=== PATIENT | male | born 1985 | race Caucasian/White ===

== ENCOUNTER 2017-02-28 01:19 | Emergency (ER) | payer MEDICAID ==
[~2017-02-28] VITALS: Ht 185.4 cm; Wt 81.6 kg
[2017-02-28 04:37] VITALS: BP 125/79
== END 2017-02-28 05:30 | disposition home or self-care (01) ==
LOC: ER 01:28
DX: T58.91XA Toxic effect of carbon monoxide from unspecified source, accidental (unintentional), initial encounter (principal); Y92.89 Other specified places as the place of occurrence of the external cause
CPT/HCPCS: 36600; 82805

== ENCOUNTER 2018-06-06 16:12 | Emergency (ER) | payer MEDICAID ==
[~2018-06-06] VITALS: Ht 188 cm; Wt 90.7 kg
[2018-06-06 18:42] VITALS: BP 123/82
== END 2018-06-06 20:35 | disposition home or self-care (01) ==
LOC: ER 16:12
DX: S62.336A Displaced fracture of neck of fifth metacarpal bone, right hand, initial encounter for closed fracture (principal); W18.39XA Other fall on same level, initial encounter; Y93.89 Activity, other specified; Y99.8 Other external cause status; Y92.096 Garden or yard of other non-institutional residence as the place of occurrence of the external cause
CPT/HCPCS: 29125; 73110; 73130

== ENCOUNTER 2022-01-14 12:04 | Emergency (ER) | payer MEDICAID ==
[~2022-01-14] VITALS: Ht 188 cm; Wt 90.9 kg
[2022-01-14 12:28] LABS: Basophils # (auto) 0.1 10 ^3/uL (0-0.2); Basophils % (auto) 0.8 % (0.0-2.0); Eosinophils # (auto) 1.1 10 ^3/uL (0-0.8); Eosinophils % (auto) 9.1 % (0.0-7.0); Hematocrit 48.2 % (41.0-53.0); Hemoglobin 16.2 g/dL (13.5-17.5); Lymphocytes # (auto) 2.3 10 ^3/uL (0.4-5.4); Lymphocytes % (auto) 18.8 % (10.0-50.0); Mean Corpuscular Hemoglobin 30.3 pg (28.0-32.0); Mean Corpuscular Hgb Conc. 33.6 g/dL (32.0-36.0); Neutrophils # (auto) 7.7 10 ^3/uL (1.6-8.6); Neutrophils % (auto) 63.3 % (37.0-80.0); Red Blood Cells 5.35 10^6/uL (4.5-5.90); White Blood Cell 12.1 10^3/uL (4.4-10.8)
[2022-01-14] MEDS ORDERED: IOHEXOL 350 MG/ML 100ML IJ ONE (12:46)
[2022-01-14 12:47] LABS: Albumin 4.3 g/dL (3.4-5.0); Calcium 9.2 mg/dL (8.5-10.1); Potassium 3.8 mmol/L (3.5-5.1)
[2022-01-14 12:52] LABS: Bilirubin, Total 0.6 mg/dL (0.2-1.0); Total Protein 7.5 g/dL (6.4-8.2)
[2022-01-14 15:00] LABS: Urine Bacteria NONE SEEN /hpf (None Seen); Urine Blood Negative /uL (Negative); Urine WBC <1 /hpf (0 - 3)
[2022-01-14] MEDS ORDERED: PANT40TA2 PO (16:05)
[2022-01-14] MEDS ORDERED: ONDA-144 PO (16:05)
[2022-01-14] MEDS ORDERED: HYDR-4902 PO (16:05)
[2022-01-14] MEDS ORDERED: AZIT1POW PO (16:09)
[2022-01-14 16:23] VITALS: BP 143/99
== END 2022-01-14 16:24 | disposition home or self-care (01) ==
LOC: ER 12:04
DX: J20.9 Acute bronchitis, unspecified (principal); D72.829 Elevated white blood cell count, unspecified; Z20.822 Contact with and (suspected) exposure to COVID-19
CPT/HCPCS: 36415; 71046; 71275; 80053; 81001; 84484; 85025; 87426; 93005; 99285; Q9967

== ENCOUNTER 2022-01-18 14:39 | Emergency (ER) | payer MEDICAID ==
[~2022-01-18] VITALS: Ht 188 cm; Wt 90.9 kg
[~2022-01-18 14:39] MED LIST: AZIT1POW PO; ONDA-144 PO; PANT40TA2 PO
[2022-01-18] MEDS ORDERED: ALBUTEROL MEDNEB 2.5 mg/3ml NEB ONE (14:53)
[2022-01-18] MEDS ORDERED: ALBUTEROL SULF 2.5 MG/0.5ML(0.5%) NEB SOLN NEB ONE (15:00)
[2022-01-18] MEDS ORDERED: IPRATROPIUM BROM 0.5 MG/2.5ML INH SOL NEB ONE (15:00)
[2022-01-18] MEDS ORDERED: PRED20TA2 PO (19:55)
[2022-01-18 20:17] VITALS: BP 138/89
== END 2022-01-18 20:18 | disposition home or self-care (01) ==
LOC: ER 14:39
DX: J45.901 Unspecified asthma with (acute) exacerbation (principal)
CPT/HCPCS: 94640; 99283; J7644

== ENCOUNTER 2022-03-23 09:07 | Emergency (ER) | payer MEDICAID ==
[~2022-03-23] VITALS: Ht 188 cm; Wt 90.0 kg
[~2022-03-23 09:07] MED LIST changes: +PRED20TA2 PO
[2022-03-23 10:58] VITALS: BP 117/88
[2022-03-23] MEDS ORDERED: MORPHINE SULFATE 4 MG/ML SYR/VIAL IM ONE (11:00)
[2022-03-23] MEDS ORDERED: ONDANSETRON ODT 4 MG TAB PO ONE (11:00)
[2022-03-23] MEDS ORDERED: LIDO5DIS21 TOP (12:08)
[2022-03-23] MEDS ORDERED: CYCL-839 PO (12:08)
[2022-03-23] MEDS ORDERED: IBUP600T28 PO (12:08)
== END 2022-03-23 12:20 | disposition home or self-care (01) ==
LOC: ER 09:07
DX: M54.12 Radiculopathy, cervical region (principal); J45.909 Unspecified asthma, uncomplicated; Z79.899 Other long term (current) drug therapy
CPT/HCPCS: 72040; 72125; 73030; 96372; 99285; J2270; Q0162

== ENCOUNTER 2022-04-06 07:19 | Inpatient (IN) | payer MEDICAID ==
[~2022-04-06] VITALS: Ht 188 cm; Wt 88.6 kg
[~2022-04-06 07:19] MED LIST changes: +CYCL-839 PO; +IBUP600T28 PO; +LIDO5DIS21 TOP
[2022-04-06] MEDS ORDERED: PANTOPRAZOLE 40 MG TAB PO ONE (07:45)
[2022-04-06] MEDS ORDERED: HYDR2.5C39 TOP (07:57)
[2022-04-06 08:47] LABS: Basophils # (auto) 0.1 10 ^3/uL (0-0.2); Basophils % (auto) 0.4 % (0.0-2.0); Eosinophils # (auto) 0.2 10 ^3/uL (0-0.8); Eosinophils % (auto) 1.4 % (0.0-7.0); Hematocrit 47.3 % (41.0-53.0); Hemoglobin 16.4 g/dL (13.5-17.5); Lymphocytes # (auto) 1.6 10 ^3/uL (0.4-5.4); Lymphocytes % (auto) 10.4 % (10.0-50.0); Mean Corpuscular Hemoglobin 31.2 pg (28.0-32.0); Mean Corpuscular Hgb Conc. 34.7 g/dL (32.0-36.0); Mean Corpuscular Volume 89.8 fL (80.0-100.0); Monocytes # (auto) 0.9 10 ^3/uL (0-1.3); Monocytes % (auto) 5.9 % (0.0-12.0); Neutrophils # (auto) 12.8 10 ^3/uL (1.6-8.6); Neutrophils % (auto) 81.9 % (37.0-80.0); Nucleated Red Blood Cells % 0.1 %; Red Blood Cells 5.27 10^6/uL (4.5-5.90); Red Cell Distribution Width 12.4 % (11.8-14.3); White Blood Cell 15.6 10^3/uL (4.4-10.8)
[2022-04-06 08:56] LABS: BUN/Creatinine Ratio 11.2; Calcium 9.3 mg/dL (8.5-10.1); Potassium 3.6 mmol/L (3.5-5.1)
[2022-04-06 08:58] LABS: Bilirubin, Total 0.5 mg/dL (0.2-1.0); Total Protein 7.7 g/dL (6.4-8.2)
[2022-04-06 09:17] LABS: Urine Bacteria NONE SEEN /hpf (None Seen); Urine Blood Negative /uL (Negative); Urine Specific Gravity 1.008 (1.001-1.035); Urine WBC 1 /hpf (0 - 3)
[2022-04-06] MEDS ORDERED: metroNIDAZOLE 500MG/100ML 100 ML IV ONE (11:15)
[2022-04-06] MEDS ORDERED: cefTRIAXone 1GM/50ML D5W 50 ML IV ONE (11:15)
[2022-04-06] MEDS ORDERED: PANTOPRAZOLE 40 MG/10 ML VIAL INJ IV ONE (13:30)
[2022-04-06] MEDS ORDERED: LACTATED RINGER'S 1,000 ML IV ONE (13:30)
[2022-04-06 13:58] LABS: Cholesterol 135 mg/dL (< 200); Triglycerides 116 mg/dL (< 150)
[2022-04-06 14:00] LABS: HDL Cholesterol 35 mg/dL (40-59); LDL Cholesterol 90 mg/dL (< 100)
[2022-04-06] MEDS: MORPHINE SULFATE INJ 2 MG/ml SYRG IV PRN ×2 (16:00→21:27)
[2022-04-06] MEDS: ONDANSETRON HCL 4 MG/2 ML VIAL IV PRN (21:26)
[2022-04-06] MEDS: metroNIDAZOLE 500MG/100ML 100 ML IV SCH (21:27)
[2022-04-07] VITALS (7 sets, daily range): BP systolic 116–128; BP diastolic 75–89
[2022-04-07] MEDS: ONDANSETRON HCL 4 MG/2 ML VIAL IV PRN ×2 (01:54→06:18)
[2022-04-07] MEDS: MORPHINE SULFATE INJ 2 MG/ml SYRG IV PRN ×2 (01:55→06:19)
[2022-04-07] MEDS ORDERED: HYDR-4072 (05:53)
[2022-04-07] MEDS ORDERED: PANT40T PO (05:54)
[2022-04-07] MEDS ORDERED: GABA300C10 PO (05:54)
[2022-04-07] MEDS ORDERED: ALBU108A5 PO (05:54)
[2022-04-07] MEDS: metroNIDAZOLE 500MG/100ML 100 ML IV SCH ×3 (06:18→21:02)
[2022-04-07 06:41] LABS: Potassium 3.4 mmol/L (3.5-5.1)
[2022-04-07 06:48] LABS: Albumin 3.7 g/dL (3.4-5.0); BUN/Creatinine Ratio 12.8; Bilirubin, Total 0.6 mg/dL (0.2-1.0); Calcium 9.1 mg/dL (8.5-10.1); Total Protein 7.1 g/dL (6.4-8.2)
[2022-04-07 06:54] LABS: Basophils # (auto) 0.1 10 ^3/uL (0-0.2); Basophils % (auto) 0.6 % (0.0-2.0); Eosinophils # (auto) 0.1 10 ^3/uL (0-0.8); Eosinophils % (auto) 1.1 % (0.0-7.0); Hematocrit 44.4 % (41.0-53.0); Hemoglobin 15.5 g/dL (13.5-17.5); Lymphocytes # (auto) 2.3 10 ^3/uL (0.4-5.4); Lymphocytes % (auto) 20.7 % (10.0-50.0); Mean Corpuscular Hemoglobin 31.2 pg (28.0-32.0); Mean Corpuscular Volume 89.2 fL (80.0-100.0); Monocytes # (auto) 0.9 10 ^3/uL (0-1.3); Neutrophils # (auto) 7.8 10 ^3/uL (1.6-8.6); Neutrophils % (auto) 69.6 % (37.0-80.0); Nucleated Red Blood Cells % 0.1 %; Red Blood Cells 4.98 10^6/uL (4.5-5.90); Red Cell Distribution Width 12.2 % (11.8-14.3); White Blood Cell 11.3 10^3/uL (4.4-10.8)
[2022-04-07] MEDS: PANTOPRAZOLE 40 MG/10 ML VIAL INJ IV SCH (09:21)
[2022-04-07] MEDS: cefTRIAXone 1GM/50ML D5W 50 ML IV SCH (09:22)
[2022-04-07] MEDS: SODIUM CHLORIDE 0.9% 1,000 ML IV SCH (11:00)
[2022-04-07] MEDS ORDERED: POTASSIUM CHL 20 Meq TABLET PO ONE (11:00)
[2022-04-07] MEDS ORDERED: HYDROcodone-ACET 5/325MG TAB PO PRN (11:00)
[2022-04-07] MEDS ORDERED: ACETAMINOPHEN 500 MG TAB PO PRN (11:00)
[2022-04-07] MEDS: GABAPENTIN 300 MG CAP PO SCH ×2 (16:30→21:02)
[2022-04-08] MEDS: SODIUM CHLORIDE 0.9% 1,000 ML IV SCH (03:55)
[2022-04-08 05:00] VITALS: BP 113/78
[2022-04-08] MEDS: metroNIDAZOLE 500MG/100ML 100 ML IV SCH (05:02)
[2022-04-08] MEDS: GABAPENTIN 300 MG CAP PO SCH ×2 (05:03→15:25)
[2022-04-08 08:00] VITALS: BP 111/75
[2022-04-08 08:50] VITALS: BP 111/75
[2022-04-08] MEDS: PANTOPRAZOLE 40 MG/10 ML VIAL INJ IV SCH (10:05)
[2022-04-08] MEDS: cefTRIAXone 1GM/50ML D5W 50 ML IV SCH (10:05)
[2022-04-08] MEDS ORDERED: METR500T PO (11:12)
[2022-04-08] MEDS ORDERED: LEVO500T31 PO (11:12)
[2022-04-08 12:04] LABS: Basophils # (auto) 0.1 10 ^3/uL (0-0.2); Basophils % (auto) 0.7 % (0.0-2.0); Eosinophils # (auto) 0.1 10 ^3/uL (0-0.8); Eosinophils % (auto) 1.2 % (0.0-7.0); Hematocrit 48.6 % (41.0-53.0); Hemoglobin 16.2 g/dL (13.5-17.5); Lymphocytes # (auto) 2.2 10 ^3/uL (0.4-5.4); Lymphocytes % (auto) 18.4 % (10.0-50.0); Mean Corpuscular Hemoglobin 30.6 pg (28.0-32.0); Mean Corpuscular Hgb Conc. 33.3 g/dL (32.0-36.0); Mean Corpuscular Volume 91.7 fL (80.0-100.0); Monocytes # (auto) 0.9 10 ^3/uL (0-1.3); Monocytes % (auto) 7.9 % (0.0-12.0); Neutrophils # (auto) 8.4 10 ^3/uL (1.6-8.6); Neutrophils % (auto) 71.8 % (37.0-80.0); Nucleated Red Blood Cells % 0.1 %; Red Cell Distribution Width 12.5 % (11.8-14.3); White Blood Cell 11.7 10^3/uL (4.4-10.8)
[2022-04-08 12:24] LABS: BUN/Creatinine Ratio 10.9; Calcium 9.3 mg/dL (8.5-10.1); Potassium 3.7 mmol/L (3.5-5.1)
[2022-04-08 12:56] VITALS: BP 114/82
[2022-04-08] MEDS ORDERED: metroNIDAZOLE 500 MG TAB PO SCH (14:00)
== END 2022-04-08 16:54 | disposition home or self-care (01) | DRG 249 ==
LOC: ER 07:19 → OVERFLOW 13:27 → EAST 04-07 04:44
PROVIDERS: ADMIT Registered Nurse; ATTEND Internal Medicine
DX: A09 Infectious gastroenteritis and colitis, unspecified (principal); N17.0 Acute kidney failure with tubular necrosis; E78.5 Hyperlipidemia, unspecified; K21.9 Gastro-esophageal reflux disease without esophagitis; K62.5 Hemorrhage of anus and rectum; Z20.822 Contact with and (suspected) exposure to COVID-19; J45.909 Unspecified asthma, uncomplicated; M48.00 Spinal stenosis, site unspecified; Z85.828 Personal history of other malignant neoplasm of skin
CPT/HCPCS: 36415; 74175; 74176; 80048; 80053; 80061; 81001; 83036; 83605; 83690; 84443; 85025; 86256; 86671; 87040; 87086; 87426; 96365; 96368; 96375; C9113; G0378; J0696; J2405; J3490